=== PATIENT | male | born 1970 | race Hispanic/Latino ===

== ENCOUNTER → 2017-10-28 | Outpatient (CLI) | payer BC | END | disposition home or self-care (01) | LOC: SHCH 15:36 | PROVIDERS: ATTEND Internal Medicine Cardiovascular Disease | DX: R07.9 Chest pain, unspecified (principal) | CPT/HCPCS: 93306 ==

== ENCOUNTER → 2020-03-28 | Outpatient (CLI) | payer BC | END | disposition home or self-care (01) | LOC: CANPRECLI → RAH 08:30 | PROVIDERS: ATTEND Family Medicine | DX: K57.30 Diverticulosis of large intestine without perforation or abscess without bleeding (principal); N32.89 Other specified disorders of bladder; I70.0 Atherosclerosis of aorta; M47.815 Spondylosis without myelopathy or radiculopathy, thoracolumbar region | CPT/HCPCS: 74176 ==

== ENCOUNTER → 2020-09-06 | Outpatient (CLI) | payer BC | END | disposition home or self-care (01) | LOC: LAB 14:58 | PROVIDERS: ATTEND Family Medicine | DX: M54.9 Dorsalgia, unspecified (principal) | CPT/HCPCS: 36415; 82565; 84520 ==

== ENCOUNTER → 2020-09-07 | Outpatient (CLI) | payer BC | END | disposition home or self-care (01) | LOC: RAH 07:46 | PROVIDERS: ATTEND Family Medicine | DX: M47.816 Spondylosis without myelopathy or radiculopathy, lumbar region (principal) | CPT/HCPCS: 72148 ==

== ENCOUNTER → 2022-02-25 | Outpatient (CLI) | payer BC | END | disposition home or self-care (01) | LOC: RAH 07:49 | PROVIDERS: ATTEND Internal Medicine | DX: K76.0 Fatty (change of) liver, not elsewhere classified (principal); R10.30 Lower abdominal pain, unspecified | CPT/HCPCS: 76700 ==